=== PATIENT | male | born 1965 | race African-American/Black ===

== ENCOUNTER 2024-08-04 10:33 | Emergency (ER) | payer MEDICAID ==
[~2024-08-04] VITALS: Ht 175.3 cm; Wt 100.0 kg
[2024-08-04 10:35] VITALS: O2SAT 98
[2024-08-04 10:37] VITALS: BP 144/84; PULSE 74; RESP 18; TEMP 36.9; O2SAT 99
[2024-08-04] MEDS ORDERED: IBUP-2028 MT (11:43)
== END 2024-08-04 11:59 | disposition home or self-care (01) ==
LOC: ER 10:33
DX: M79.672 Pain in left foot (principal); I10 Essential (primary) hypertension; E78.00 Pure hypercholesterolemia, unspecified; W22.8XXA Striking against or struck by other objects, initial encounter; Y93.01 Activity, walking, marching and hiking; Y92.89 Other specified places as the place of occurrence of the external cause; Y99.8 Other external cause status
CPT/HCPCS: 73630; 99283